=== PATIENT | male | born 1985 | race Caucasian/White ===

== ENCOUNTER 2021-03-03 05:22 | Emergency (ER) | payer MEDICAID, MEDICARE ==
[~2021-03-03] VITALS: Ht 180.3 cm; Wt 75.0 kg
[~2021-03-03 05:22] MED LIST: ABILIFY
[2021-03-03 06:13] LABS: BASOPHILS % 0.4 % (0.0-2.0); EOSINOPHILS % 0.1 % (0.0-5.0); HEMATOCRIT. 41.2 % (42.0-52.0); LYMPHOCYTES % 17.4 % (20.0-50.0); MEAN CORPUSCULAR HEMOGLOBIN 31.1 pg (28.0-32.0); MEAN CORPUSCULAR VOLUME 91.6 fL (80.0-94.0); MEAN PLATELET VOLUME 7.4 fl (7.4-10.4); MONOCYTES % 10.9 % (2.0-8.0); NEUTROPHILS % 71.2 % (40.0-76.0); PLATELET 274 x1000/uL (130-400); RED BLOOD CELL COUNT 4.49 mill/uL (4.7-6.1); RED CELL DISTRIBUTION WIDTH 13.5 % (11.6-14.6)
[2021-03-03] MEDS ORDERED: SODIUM CHLORIDE 0.9% 1,000 ML IV ONE (06:15)
[2021-03-03 06:22] LABS: CHLORIDE 106 mEq/L (98-107)
[2021-03-03 06:26] LABS: ETHANOL BLOOD < 10 mg/dL
[2021-03-03] MEDS ORDERED: LORAZEPAM 2MG/ML CPJ IV ONE (06:30)
[2021-03-03 08:19] LABS: *AMPHETAMINES SCREEN URINE PRESUMTIVE POSITIVE (NEGATIVE); *BARBITURATES SCREEN URINE NEGATIVE (NEGATIVE); *BENZODIAZEPINES SCREEN URINE NEGATIVE (NEGATIVE)
[2021-03-03 08:20] LABS: *COCAINE SCREEN URINE NEGATIVE (NEGATIVE); CANNABINOID URINE SCREEN PRESUMTIVE POSITIVE (NEGATIVE); METHADONE URINE SCREEN NEGATIVE (NEGATIVE); OPIATES URINE SCREEN NEGATIVE (NEGATIVE); PHENCYCLIDINE URINE SCREEN NEGATIVE (NEGATIVE)
[2021-03-03 10:30] VITALS: BP 130/78
== END 2021-03-03 10:30 | disposition home or self-care (01) ==
LOC: ER 05:22
DX: R51.9 Headache, unspecified (principal); F32.9 Major depressive disorder, single episode, unspecified
CPT/HCPCS: 36415; 70450; 71045; 80053; 80305; 80320; 83690; 83880; 84443; 84484; 85025; 93005; 96361; 96374; 99285; J2060; J7030; Z7610; G0480

== ENCOUNTER 2025-10-20 18:41 | Emergency (ER) | payer BC, MEDICAID ==
[~2025-10-20] VITALS: Ht 180.3 cm; Wt 78.0 kg
[2025-10-20 19:03] VITALS: O2SAT 98
[2025-10-20] MEDS: FLUORESCEIN SODIUM 1MG/STRIP LEFTEYE ONE (22:30)
[2025-10-21] MEDS: TETRACAINE 0.5% OPHTH DROPS 4ML BOTHEYE ONE (00:08)
[2025-10-21] MEDS: IBUPROFEN 600MG TABLET PO ONE (00:08)
[2025-10-21] MEDS: BACITRACIN ZINC OINT UDPKT TOP ONE (00:08)
[2025-10-21] MEDS: TETANUS, DIPHTHERIA, PERTUSSIS VAC/PF 0.5ML (>10YR OLD) IM ONE (01:59)
[2025-10-21] MEDS: LIDOCAINE HCL 1% 20ML VIAL INL ONE (01:59)
[2025-10-21] MEDS ORDERED: AMOX1TAB16 MT (03:45)
[2025-10-21] MEDS ORDERED: BO1 TP (03:45)
[2025-10-21] MEDS ORDERED: IBUP-2030 MT (03:45)
[2025-10-21 04:05] VITALS: BP 130/76; PULSE 95; RESP 15; TEMP 36.8; O2SAT 100
== END 2025-10-21 04:06 | disposition home or self-care (01) ==
LOC: ER 18:41
DX: S02.85XA Fracture of orbit, unspecified, initial encounter for closed fracture (principal); S02.2XXA Fracture of nasal bones, initial encounter for closed fracture; S01.112A Laceration without foreign body of left eyelid and periocular area, initial encounter; S05.12XA Contusion of eyeball and orbital tissues, left eye, initial encounter; S01.412A Laceration without foreign body of left cheek and temporomandibular area, initial encounter; S01.81XA Laceration without foreign body of other part of head, initial encounter; F32.A Depression, unspecified; Z79.899 Other long term (current) drug therapy; S02.40DA Maxillary fracture, left side, initial encounter for closed fracture; Y08.89XA Assault by other specified means, initial encounter; Y93.89 Activity, other specified; Y92.89 Other specified places as the place of occurrence of the external cause; Y99.8 Other external cause status
CPT/HCPCS: 99285; 70486; 12013; 90715; 90471; J2003

== ENCOUNTER 2025-10-29 18:41 | Emergency (ER) | payer BC ==
[~2025-10-29] VITALS: Ht 180.3 cm; Wt 77.0 kg
[2025-10-29 18:41] VITALS: O2SAT 98
[~2025-10-29 18:41] MED LIST changes: +AMOX1TAB16 MT; +BO1 TP; +IBUP-2030 MT
[2025-10-29 18:43] VITALS: BP 177/123; PULSE 98; RESP 18; TEMP 36.9; O2SAT 98
[2025-10-29] MEDS: BACITRACIN ZINC OINT UDPKT TOP ONE (19:28)
== END 2025-10-29 20:00 | disposition home or self-care (01) ==
LOC: ER 18:41
DX: S01.112D Laceration without foreign body of left eyelid and periocular area, subsequent encounter (principal); F32.A Depression, unspecified; Z79.899 Other long term (current) drug therapy; X58.XXXD Exposure to other specified factors, subsequent encounter
CPT/HCPCS: 99282

== ENCOUNTER 2025-11-12 20:20 | Emergency (ER) | payer BC ==
[~2025-11-12] VITALS: Ht 172.7 cm; Wt 82.0 kg
[2025-11-12 20:26] VITALS: O2SAT 99
[2025-11-12] MEDS: KETOROLAC 30MG/ML VIAL IM ONE (22:04)
[2025-11-12] MEDS ORDERED: ACET-2708 MT (22:05)
[2025-11-12] MEDS ORDERED: LIDO-53 TP (22:05)
[2025-11-12 22:20] VITALS: BP 147/102; PULSE 118; RESP 16; TEMP 36.7; O2SAT 99
== END 2025-11-12 22:25 ==
LOC: ER 20:20
DX: M25.40 Effusion, unspecified joint (principal); Z79.899 Other long term (current) drug therapy; W18.30XA Fall on same level, unspecified, initial encounter; Y93.89 Activity, other specified; Y92.89 Other specified places as the place of occurrence of the external cause; Y99.8 Other external cause status
CPT/HCPCS: 73562; 73610; 29505; 96372; 99285; J1885; Z7610